=== PATIENT | male | born 1985 | race Caucasian/White ===

== ENCOUNTER 2019-10-22 02:22 | Emergency (ER) | payer OTHER ==
[~2019-10-22] VITALS: Ht 175.3 cm; Wt 75.0 kg
[2019-10-22 02:26] VITALS: BP 143/91; TEMP 97.8
[2019-10-22 02:49] LABS: BASO % 0.2 % (0.0-2.0); EOS # 0.2 (0.0-0.7); EOS % 1.8 % (0-4.0); GRAN # 7.2 (1.4-6.5); HEMATOCRIT 44.6 % (42.0-52.0); HEMOGLOBIN 14.7 g/dl (13.5-18.0); LYMPH # 1.7 (1.2-3.4); LYMPH % 17.1 % (20.0-51.0); MEAN CELL VOLUME 87 fl (80.0-100.0); MEAN CORPUSCULAR HEMOGLOBIN 29 pg (27.0-31.0); MEAN CORPUSCULAR HGB CONC 33 g/dl (33.0-37.0); MEAN PLATELET VOLUME 10.5 fl (7.4-10.4); MONO # 0.9 (0.1-0.6); MONO % 8.6 % (1.7-9.3); PLATELET COUNT 258 K/mm3 (130-400); RED BLOOD COUNT 5.13 M/mm3 (4.20-5.60); REDCELL DISTRIBUTION WIDTH-CV 12.4 % (11.5-14.5)
[2019-10-22] MEDS ORDERED: ZOLOFT 25MG25 MG (02:54)
[2019-10-22] MEDS ORDERED: PRIL40 PO (02:54)
[2019-10-22 03:00] LABS: ALANINE AMINOTRANSFERASE 26 U/L (21-72); ALKALINE PHOSPHATASE 75 U/L (50-136); ANION GAP 16 mmol/L (7-16); AST,SGOT 22 U/L (15-37); BILIRUBIN,TOTAL 0.5 mg/dL (0.0-1.0); BLOOD UREA NITROGEN 19 mg/dL (9-20); CALCIUM 9.4 mg/dL (8.4-10.2); CARBON DIOXIDE 23 mmol/L (22-30); CHLORIDE 100 mmol/L (98-107); CREATININE, serum 0.85 (0.66-1.25); GLUCOSE 114 mg/dL (74-106); LIPASE 63 U/L (23-300); POTASSIUM 3.4 mmol/L (3.4-5.0); SODIUM 138 mmol/L (137-145); TOTAL PROTEIN 8.5 gm/dL (6.4-8.2)
[2019-10-22 03:13] LABS: TROPONIN-I < 0.012 ng/mL (0.000-0.035)
[2019-10-22] MEDS ORDERED: CARAFATE 1GM1 G PO (03:20)
[2019-10-22 03:45] VITALS: PULSE 76
== END 2019-10-22 03:45 | disposition home or self-care (01) ==
LOC: COL.ER 02:22
PROVIDERS: Emergency Medicine
DX: K21.9 Gastro-esophageal reflux disease without esophagitis (principal)
CPT/HCPCS: C9113; J2405; J7030

== ENCOUNTER 2019-10-29 06:35 | Day surgery (SDC) | payer OTHER ==
[~2019-10-29] VITALS: Ht 175.3 cm; Wt 77.0 kg
[~2019-10-29 06:35] MED LIST: CARAFATE 1GM1 G PO; PRIL40 PO; ZOLOFT 25MG25 MG PO
[2019-10-29 06:56] VITALS: BP 127/69; PULSE 66; TEMP 98.3
[2019-10-29 08:20] VITALS: BP 124/77; PULSE 66; TEMP 97.7
--- NOTE | 2019-10-29 08:20 | NUR ---
Pt to [facility] 2 via cart from [facility]. Pt drowsy, but awake. Pt ambulates to recliner with stand by assistance x2. Father in room. Pt denies pain or nausea. Water given per pt request. Will continue to monitor. Call light within reach.
[2019-10-29 08:35] VITALS: BP 115/80; PULSE 54
--- NOTE | 2019-10-29 08:35 | NUR ---
Pt tolerating water without difficulties. Pt denies needs. Call light within reach.
[2019-10-29 08:50] VITALS: BP 123/81; PULSE 52
--- NOTE | 2019-10-29 08:50 | NUR ---
Pt continues to rest. Denies needs. Call light within reach.
[2019-10-29 09:05] VITALS: BP 122/80; PULSE 52
--- NOTE | 2019-10-29 09:05 | NUR ---
Discharge instructions reviewed. Pt voices understanding. IV site discontinued with all parts intact. Pt up to dress. Call light within reach.
--- NOTE | 2019-10-29 09:15 | NUR ---
Pt escorted to private car via wheel chair. Pt accompanied home by his father.
== END 2019-10-29 09:15 | disposition home or self-care (01) ==
LOC: SDCO 06:35
DX: K21.9 Gastro-esophageal reflux disease without esophagitis (principal); K31.7 Polyp of stomach and duodenum; Q40.2 Other specified congenital malformations of stomach
CPT/HCPCS: J2250; J2405; J3010; J7030

== ENCOUNTER 2020-12-11 21:45 | Emergency (ER) | payer OTHER ==
[~2020-12-11] VITALS: Ht 175.3 cm; Wt 72.7 kg
[2020-12-11 22:03] VITALS: TEMP 98.5
[2020-12-11 23:27] LABS: HEMATOCRIT 48.1 % (42.0-52.0); HEMOGLOBIN 16.4 g/dl (13.5-18.0); MEAN CELL VOLUME 85 fl (80.0-100.0); MEAN CORPUSCULAR HEMOGLOBIN 29 pg (27.0-31.0); MEAN CORPUSCULAR HGB CONC 34 g/dl (33.0-37.0); MEAN PLATELET VOLUME 10.7 fl (7.4-10.4); PLATELET COUNT 306 K/mm3 (130-400); RED BLOOD COUNT 5.69 M/mm3 (4.20-5.60)
[2020-12-11 23:36] LABS: ALBUMIN 5.6 gm/dL (3.5-5.0); BILIRUBIN,TOTAL 0.8 mg/dL (0.0-1.0); C-REACTIVE PROTEIN 0.7 mg/dL (0.0-0.9); CALCIUM 10.7 mg/dL (8.4-10.2); CREATININE, serum 1.27 (0.66-1.25); POTASSIUM 4.2 mmol/L (3.4-5.0); TOTAL PROTEIN 9.7 gm/dL (6.4-8.2)
[2020-12-11 23:39] LABS: BAND 1 % (0-10); EOSINOPHIL 1 % (0-4); LYMPHOCYTE 2 % (20.0-51.0); NEUTROPHILS 92 % (42.0-75.2); PLATELET ESTIMATE NORMAL (NORMAL)
[2020-12-12 02:24] VITALS: BP 114/68; PULSE 99
== END 2020-12-12 02:25 | disposition home or self-care (01) ==
LOC: COL.ER 21:45
PROVIDERS: Nurse Practitioner
DX: K21.00 Gastro-esophageal reflux disease with esophagitis, without bleeding (principal); Z88.0 Allergy status to penicillin; Z88.1 Allergy status to other antibiotic agents
CPT/HCPCS: J2405; J2550; J7030